=== PATIENT | female | born 1945 | race Caucasian/White ===

== ENCOUNTER → 2024-02-14 13:09 | Outpatient (REF) | payer MEDICARE, OTHER, SELFPAY | LOC: CLAB 13:09 | PROVIDERS: ATTENDING PHYSICIAN Nurse Practitioner | DX: N39.0 Urinary tract infection, site not specified (principal) | CPT/HCPCS: 87086 ==

== ENCOUNTER → 2024-03-12 16:09 | Outpatient (REF) | payer MEDICARE, OTHER, SELFPAY | LOC: RAD 16:09 | PROVIDERS: ATTENDING PHYSICIAN Nurse Practitioner; FAMILY PHYSICIAN Family Medicine | DX: N39.0 Urinary tract infection, site not specified (principal) | CPT/HCPCS: 76770; 76830; 76856 ==

== ENCOUNTER 2024-03-21 14:50 | Inpatient (IN) | payer MEDICARE, OTHER, SELFPAY ==
[2024-03-21 11:38] VITALS: BP 160/58
[2024-03-21 12:03] LABS: COVID-19 Antigen Negative (Negative)
--- NOTE | 2024-03-21 12:43 | ED.GENMED ---
History of Present Illness
General
Chief Complaint: Cold/Flu/URI Symptoms
Source: patient and spouse
Time Seen by Provider: 03/21/24 12:25
Travel History
Have you had any contact with someone who has COVID-19?: No
Do you have any symptoms of coronavirus? Fever > 100 degrees, chills, cough, shortness of breath, sore throat, loss of taste or smell, muscle aches, or headache?: Yes
Symptoms:: sore throat
History of Present Illness
History of Present Illness:
78-year-old female presents emergency department complaints of a mild sore throat that started on Monday and continues. She saw her primary yesterday and had a strep and flu test that was negative. She was started on doxycycline and has taken 2
doses. She notes ongoing generalized weakness for the last 2 to 3 days she said that last night she vomited x 1. However, she describes 'vomiting' as a fit of coughing followed by bringing up phlegm. She had another episode this morning. She
notes nausea and loss of appetite but denies abdominal pain, back pain, bleeding, fevers, urinary symptoms, diarrhea, abdominal pain. When asked about dyspnea she notes very slight dyspnea with exertion. When asked about chest pain she says she
had 'a little' in the upper chest this morning lasting about an hour and resolving completely.
Past History
Past History
ED Past Medical History: CVA (? in 07/2014), HTN, Hypercholesterolemia, NIDDM, Other (obesity) and Other (TOMEKA)
Social History
Tobacco: Non-smoker
Alcohol: None
Drug: None
Personal:
Living: with family
Employment: Retired
Family History
Family History: Other (reviewed and non-contributory)
Phy Exam
Physical Exam
Physical Exam:
GENERAL: Alert , in no apparent distress, obvious cough
EYE: pupils equal and reactive
NECK: Supple, no significant adenopathy.
ENT: o/p clr, mm dry, , no trismus/drool
CARDIAC: Regular rate and rhythm .
LUNGS: Clear breath sounds bilaterally, no acute respiratory distress, no wheezes/rales/rhonchi
ABDOMEN: Soft, without focal tenderness, no r/g, no cvat
NEUROLOGICAL: Alert and oriented, no focal neuro deficits
SKIN: Warm and dry, skin intact.
MUSCULOSKELETAL: No edema, well perfused.
PSYCH: Normal and appropriate interaction.
Course
Orders/Labs/Results
Orders:
Orders
03/21/24 Lunch
2000 calorie (17 carb) Diabetic
At Your Request: Full Participation
Does patient need a safe tray?: No
Fluid Restriction: 1200 mL/day (40 oz)
Regular
At Your Request: Full Participation
Fluid Restriction: 1200 mL/day (40 oz)
03/21/24 11:44
COVID-19 Antigen Urgent
Source: Nasal Swab
Influenza A+B Rapid Molecular Urgent
ARACELI Source: Nasal Swab
Specimen Description:
03/21/24 12:41
Cardiac Monitoring- Treatment ONCE
0.9% Sodium Chloride 500 ml [Nss] 500 ml IV BOLUS
03/21/24 12:42
Electrocardiogram (*1) Stat
Reason for Study: Other
Other Reason for Exam: pneumonia
EKG- Treatment ONCE
CR Chest - 2 Views Urgent
Comment:
Reason For Exam: cough
03/21/24 13:00
Comprehensive Metabolic Panel Urgent
Lactic Acid Q4H
Comment: CANCEL 2nd LACTIC ACID IF 1st LACTIC ACID IS LESS THAN 2
Magnesium Urgent
Comment: ADD ON
Blood Culture Q30M
ARACELI Source: Blood/Venous
Specimen Description:
Blood Culture Q30M
ARACELI Source: Blood/Venous
Specimen Description:
03/21/24 13:01
Complete Blood Count/No Diff Urgent
Cortisol, Random Urgent
Comment: ADD ON
TSH Reflex To Free T4 Urgent
Comment: ADD ON
Troponin I Urgent
03/21/24 14:11
Osmolality, Random Urine Urgent
Date Specimen was Collected: 03/21/24
Time Specimen was Collected: 14:04
Urinalysis Reflex To Culture Urgent
Date Specimen was Collected: 03/21/24
Time Specimen was Collected: 14:04
Urine Microscopic Reflex Cult Urgent
Urine Sodium Urgent
Date Specimen was Collected: 03/21/24
Time Specimen was Collected: 14:04
03/21/24 14:12
Admit/Transfer Patient As Directed
Co-Sign Provider:
Level of Care: Inpatient admission
Assign to:: Medical/Surgical
Physician / Group: Antony Grubbs
Diagnosis: Symptomatic hyponatremia
Reason for Hospitalization: Symptomatic hyponatremia
Expected length of stay greater than two midnights?: Yes
ELOS- Estimated Length of Stay in days: 2
I certify the patient meets the requirements for IP care: Yes
03/21/24 14:14
Code Status As Directed
Resuscitation Status: Full Code
03/21/24 15:00
3% Sodium Chloride 250 ml [Sodium Chloride 3%] 250 ml IV ONCE
03/21/24 16:35
Acetaminophen [Tylenol] 650 mg PO Q4HPRN PRN
Bisacodyl [Dulcolax] 10 mg RECTAL [id number] PRN
Dextrose 50%-Water [Dextrose 50% Syringe] 12.5 grams IV [id number] PRN
Docusate W/Senna [Senokot-S] 1 tablet PO BIDPRN PRN
Glucagon [GlucaGen] 1 mg IM PRN PRN
Insulin Aspart Corrective Low [Novolog Flexpen-Low Resistance] See Protocol SC AC
Ondansetron Injectable [Zofran] 4 mg IV Q6HPRN PRN
Polyethylene Glycol Powder [Miralax] 17 grams PO DAILYPRN PRN
03/21/24 16:35
Activity As Directed
Activity Level: Bedrest
Bedside Glucose Monitoring As Directed
Frequency: AC&HS
Additional Instructions:: Change to q6h if pt on TPN, tube feeding or not eating
Vital Signs As Directed
Frequency: Per unit guidelines
DX Deep Vein Thrombosis Video Routine
03/21/24 18:00
Enoxaparin Sodium [Lovenox] 40 mg SC QPM
METFORMIN HCl [Glucophage] 1,000 mg PO BID AT 0800,1700
03/21/24 20:00
Carvedilol [Coreg] 12.5 mg PO BID
Clorazepate Dipotassium [Tranxene] 3.75 mg PO BID
Doxycycline [Vibramycin] 100 mg PO BID
03/21/24 22:00
Gabapentin [Neurontin] 200 mg PO HS
03/22/24 07:27
Basic Metabolic Panel IN AM
Complete Blood Count/No Diff IN AM
03/22/24 08:00
Atorvastatin [Lipitor] 40 mg PO DAILY
Clopidogrel Bisulfate [Plavix] 75 mg PO DAILY
Losartan [Cozaar] 100 mg PO DAILY
Magnesium l-Lactate [Mag-Tab Sr] 84 mg PO DAILY
03/23/24 04:59
Basic Metabolic Panel IN AM
Complete Blood Count/No Diff IN AM
Abnormal Lab Results
03/21/24 03/21/24 03/21/24
13:00 13:01 14:11
WBC 12.6 H 10^3/uL
(4.8-10.8)
Hct 34.4 L %
(37.0-47.0)
MCV 78.4 L fL
(81.0-99.0)
Sodium 117 L* mmol/L
(135-145)
Chloride 83 L mmol/L
(98-107)
BUN 19 H mg/dl
(7-17)
Glucose 117 H mg/dl
(70-99)
Lactic Acid 3.4 H mmol/L
(0.7-2.0)
Magnesium 1.2 L mg/dl
(1.6-2.3)
Urine Ketones 1+ A
(Negative)
Leukocyte Esterase Rfl Trace A
(Negative)
Urine Bacteria (Reflex) Few A
(Negative)
Urine Sodium 137 H mmol/L
(30-90)
03/21/24 13:01
03/21/24 13:00
Vital Signs
Initial and Last Documented VS:
Initial Vital Signs
Temp Pulse Resp BP Pulse Ox
97.9 F 61 20 160/58 94
03/21/24 11:38 03/21/24 11:38 03/21/24 11:38 03/21/24 11:38 03/21/24 11:38
Last Documented Vital Signs
Temp Pulse Resp BP Pulse Ox
98.6 F 60 18 132/56 97
03/24/24 12:08 03/24/24 12:08 03/24/24 12:08 03/24/24 12:08 03/24/24 12:08
*Critical Care Note
Total Time (30-74mins, 75-104mins- exclusive of procedures): Not Applicable
Update Note
Update Note:
Patient presents to the Emergency Department with sore throat generalized weakness
Number and Complexity of Problems Addressed at the Encounter
� Chronic conditions affecting care:
� Acute Exacerbation and/or Progression of Chronic Illness:
� Differential Diagnosis includes: But not limited to COVID, influenza, viral illness, sepsis, electrolyte disturbance, etc.
Amount and/or Complexity of Data to be Reviewed and Analyzed
� I performed an independent evaluation of and my interpretation is:
EKG:
CT:
Xrays:
Laboratory Studies:
Other:
� Review of other/old records reveals:
� Clinical information was obtained by an independent historian: who is bedside
� Prescriptions/Medications Considered but not given:
� Further testing considered but not performed:
Risk of Complications and/or Morbidity or Mortality of Patient Management
� Social determinants of health affecting care:
� Discussion with other providers (PCP, Hospitalists, Consultants, etc):
� Escalation of care including admission/observation vs risk of discharge considered:
ED Attending Note
-
Portions of this chart may have been created with voice recognition software.� Occasional wrong word or��sound alike� substitutions may have occurred due to the inherent limitations of voice recognition software.
Discharge Plan
Departure
Patient Disposition: Admit
Date of Disposition: 03/21/24
Time of Disposition: 14:04
Admit to: Telemetry
Presentation/result/management discussed w/ accepting MD/DO: Hospitalist
Discharge Problem:
Hyponatremia
Interventions
Interventions:
*Risk Screen - Suicide Last Done: 03/21/24 12:15
*General Assessment Last Done: 03/21/24 13:30
*Neglect/Abuse Screening Last Done: 03/21/24 12:15
ED- Fall Risk Assessment Last Done: 03/21/24 16:42
*ED COVID-19 Vaccine History Last Done: 03/21/24 11:38
*Nursing Disposition Last Done: 03/21/24 16:42
ED- Pulmonary Assessment Last Done: 03/21/24 13:31
Discharge Date and Time
Discharge Date/Time: 03/21/24 16:42
[2024-03-21] MEDS: NSS 500 IV (13:01)
[2024-03-21 13:11] LABS: Hematocrit 34.4 % (37.0-47.0); Hemoglobin 12.3 g/dL (12.0-16.0); Mean Corp Hgb Conc. 35.8 g/dL (33.0-37.0); Mean Corpuscular Volume 78.4 fL (81.0-99.0); Mean Platelet Volume 9.4 fL (7.4-10.4); Platelet Count 227 10^3/uL (130-400); Red Blood Cell Count 4.39 10^6/uL (4.20-5.40); Red Cell Dist. Width 13.4 % (11.5-14.5); White Blood Cell Count 12.6 10^3/uL (4.8-10.8)
[2024-03-21 13:24] LABS: Lactic Acid 3.4 mmol/L (0.7-2.0)
[2024-03-21 13:34] LABS: Troponin I < 0.012 ng/ml
[2024-03-21 13:41] LABS: ALT (SGPT) 18 U/L (0-35); AST (SGOT) 23 U/L (14-36); Albumin 4.6 g/dl (3.5-5.0); Alkaline Phosphatase 89 U/L (38-126); Blood Urea Nitrogen 19 mg/dl (7-17); Calcium 9.4 mg/dl (8.4-10.2); Carbon Dioxide 24 mmol/L (22-30); Chloride 83 mmol/L (98-107); Glucose 117 mg/dl (70-99); Potassium 3.5 mmol/L (3.5-5.1); Sodium 117 mmol/L (135-145); Total Bilirubin 1.3 mg/dl (0.2-1.3); Total Protein 7.1 g/dl (6.3-8.2); eGFR > 60.00
--- NOTE | 2024-03-21 14:18 | HPS.HSE ---
Family Physician
-
Family Physician: Migdalia Bush
Chief Complaint
-
Generalized weakness and fatigue
History of Present Illness
Patient is 78-year-old female with past medical history of essential hypertension, hyperlipidemia, type 2 diabetes mellitus, CAD, history of breast cancer, COVID-19 infection, history of hyponatremia came to ER with new onset of generalized weakness
and fatigue for the last 5 to 6 days. Patient had also associated new onset of nausea and 1 episode of nonbilious vomiting last night. Patient denies of having any overt diarrhea. Appetite is poor and patient has not been eating well for the last
2 days. Denies of having any other problems chest pain/shortness of breath/palpitation/dizziness/syncope.
Patient in 22 had episode of hyponatremia and was required admission and 2 dose of Samsca. Post discharge patient was maintained on oral Lasix. Patient have seen nephrology in office. Patient unfortunately not following fluid restriction as per
patient she was not informed about this.
Medical History
Past Medical History
Past Medical History: Reports Other
Additional Past Medical History:
essential hypertension, hyperlipidemia, type 2 diabetes mellitus, CAD, history of breast cancer, COVID-19 infection, history of hyponatremia
Past Surgical History: Reports Other
Social History
Tobacco: Non-smoker
Alcohol: Occasional
Drug: None
Personal:
Living: With Family
Family History
Family History: Not pertinent
Allergies / Home Medications
Allergies reflects when Allergies were last updated in [facility].
Home Medications with original date entered in [facility]
Allergy/Medication List:
Allergies
Allergy/AdvReac Type Severity Reaction Status Date / Time
azithromycin Allergy Unknown Verified 03/21/24 11:43
cephalexin Allergy Unknown Verified 03/21/24 11:43
clarithromycin Allergy Unknown Verified 03/21/24 11:43
codeine Allergy Unknown Verified 03/21/24 11:43
Estrogens Allergy Unknown Verified 03/21/24 11:43
guaifenesin Allergy Unknown Verified 03/21/24 11:43
levofloxacin [From Levaquin] Allergy dizzness Verified 03/21/24 11:43
morphine Allergy Unknown Verified 03/21/24 11:43
ofloxacin Allergy Unknown Verified 03/21/24 11:43
Penicillins Allergy Unknown Verified 03/21/24 11:43
phenylephrine HCl Allergy Unknown Verified 03/21/24 11:43
[From Entex LA]
phenylpropanolamine Allergy Unknown Verified 03/21/24 11:43
phenylpropanolamine HCl Allergy Unknown Verified 03/21/24 11:43
[From Entex LA]
prochlorperazine Allergy Unknown Verified 03/21/24 11:43
promethazine Allergy Unknown Verified 03/21/24 11:43
sulfadiazine Allergy Unknown Verified 03/21/24 11:43
valacyclovir Allergy Unknown Verified 03/21/24 11:43
Home Medications
clopidogrel 75 mg tablet 75 mg PO DAILY Blood clot prevention/tx 05/08/16
clorazepate dipotassium 3.75 mg tablet 3.75 mg PO BID Neurological Condition 05/08/16
atorvastatin 40 mg tablet 40 mg PO DAILY High cholesterol 10/09/22
betamethasone dipropionate 0.05 % topical cream 1 applic topical DAILY Skin issues 10/09/22
cyanocobalamin (vitamin B-12) 1,000 mcg capsule 1,000 mcg PO DAILY Supplement 10/09/22
gabapentin 100 mg tablet 200 mg PO HS Neurological Condition 10/09/22
sitagliptin phosphate 50 mg tablet (Januvia) 50 mg PO BID Diabetes 10/09/22
carvedilol 6.25 mg tablet 6.25 mg PO BID Blood pressure #60 tabs 10/13/22
furosemide 20 mg tablet 20 mg PO DAILY fluid retention #30 tabs 10/13/22
metformin 1,000 mg tablet 1,000 mg PO BID Diabetes #0 tabs 10/13/22
PreserVision AREDS 1 tab PO BID 11/26/22
Slow Release Magnesium 1 tab PO BID 11/26/22
cranberry 500 mg capsule 500 mg PO DAILY 11/26/22
cyanocobalamin (vitamin B-12) 1,000 mcg tablet (Vitamin B-12) 1,000 mcg PO DAILY 11/26/22
losartan 25 mg tablet 25 mg PO DAILY 11/26/22
ondansetron 4 mg disintegrating tablet 4 mg PO Q6H PRN nausea and vomiting #20 tabs 11/26/22
ondansetron 4 mg disintegrating tablet 4 mg PO TID PRN nausea and vomiting #10 tabs 07/18/23
Review of Systems
-
A 12 point ROS was completed and negative except as noted: Yes
Physical Exam
Vital Signs
Vital Signs
Temp Pulse Resp BP Pulse Ox
97.9 F 62 12 160/58 96
03/21/24 11:38 03/21/24 13:30 03/21/24 13:30 03/21/24 11:38 03/21/24 13:30
Physical Exam
General: No Apparent Distress
HEENT: NormoCephalic, Moist mucous membranes and Atraumatic
Respiratory: Clear
Cardiac: S1/S2 and Regular Rhythm; No Murmur or Rub
GI: Soft, Non Tender, Non Distended and Normal Bowel Sounds; No Organomegaly
Rectal: Deferred by Provider
Musculoskeletal: No Clubbing, No Cyanosis and No Edema
Skin: No Rash
Neuro: Awake, Alert and Nonfocal/grossly intact
Laboratory Results
-
03/21/24 13:01
03/21/24 13:00
Laboratory Results
Lactic Acid 3.4 mmol/L (0.7-2.0) H 03/21/24 13:00
Total Bilirubin 1.3 mg/dl (0.2-1.3) 03/21/24 13:00
AST 23 U/L (14-36) 03/21/24 13:00
ALT 18 U/L (0-35) 03/21/24 13:00
Alkaline Phosphatase 89 U/L (38-126) 03/21/24 13:00
Troponin I < 0.012 ng/ml 03/21/24 13:01
Data Reviewed
-
Diagnostic Radiology: Image Personally Visualized and interpreted and Discussed with Family
Lab Data: Labs Reviewed by me, Discussed with Patient and Discussed with Family
Impression/Plan
-
1. Acute hyponatremia
-Previous history of hyponatremia with another sodium of 126
-Patient been having generalized weakness/fatigue for last few days
-Sodium 117 today in ER
-Urine sodium/electrolyte check pending
-Recheck TSH/free T4/random cortisol level
-No overt malignancy on lung parenchyma, right humeral head area bone changes? await official read
-Patient getting 3% hypertonic saline
-Follow-up BMP 1800
-Nephrology help appreciated
2. HTN urgency
Essential HTN
-Resume home medication of losartan/coreg
-med reconcilation pending
3. NIDDM
- maintain on ISS
- Hold PO meds
4. Nausea/vomiting
-hyponatremia related likely
-diet as tolerated, prn zofran
CAD
HLD
h/o COVID infection
DVTPPX - lovenox
Full code
[2024-03-21] MEDS: SODIUM CHLORIDE 3% 250 IV (14:19)
[2024-03-21 14:22] VITALS: BP 165/43
[2024-03-21 14:30] LABS: Urine Albumin Negative (Neg - Trace); Urine Bilirubin Negative (Negative); Urine Character Clear (Clear); Urine Color Yellow; Urine Glucose Negative (Negative); Urine Ketone 1+ (Negative); Urine Leukocyte Trace (Negative); Urine Nitrite Negative (Negative); Urine Occult Blood Negative (Negative); Urine Urobilinogen Negative (Neg - 1+)
--- NOTE | 2024-03-21 14:31 | W.CON.NEPH ---
Consultation
-
Date/Time Consultation Requested: 03/21/2024 2:15 PM
Date/Time Consultation Performed: 03/21/2024 2:15 PM
Requesting Provider: Romie
Performing Provider: Dr. Jackson
Reason for Consultation: Hyponatremia
Medical History
-
Chief Complaint: Hyponatremia
History of Present Illness:
78-year-old female with past medical history of hypertension maintained on lisinopril and carvedilol, diabetes with retinopathy and neuropathy maintained on Jardiance metformin, as well as previous history of stroke maintained on statin Plavix,
hyponatremia hx maintain on lasix but no fluid restriction presents to the hospital emergency room due to generalized weakness sore throat dry cough and fatigue over the past week. The patient had also had some associated new onset of nausea with 1
episode of vomiting last p.m. but denied any associated abdominal pain fevers or diarrhea. Patient states that her appetite has been poor over the past several days and she has been only taking in fluids. On presentation to the hospital the
patient had a sodium of 117 and nephrology was urgently consulted. Of note nephrology had seen her in September 2022 with similar presentation.
Past Medical History
essential hypertension, hyperlipidemia, type 2 diabetes mellitus, CAD, history of breast cancer, COVID-19 infection, history of hyponatremia
Social History
Tobacco: Non-Smoker
Alcohol: Occasional
Drug: None
Personal:
Family History
No chronic kidney disease
Allergies / Home Medications
Allergy/AdvReac Type Severity Reaction Status Date / Time
azithromycin Allergy Unknown Verified 03/21/24 11:43
cephalexin Allergy Unknown Verified 03/21/24 11:43
clarithromycin Allergy Unknown Verified 03/21/24 11:43
codeine Allergy Unknown Verified 03/21/24 11:43
Estrogens Allergy Unknown Verified 03/21/24 11:43
guaifenesin Allergy Unknown Verified 03/21/24 11:43
levofloxacin [From Levaquin] Allergy dizzness Verified 03/21/24 11:43
morphine Allergy Unknown Verified 03/21/24 11:43
ofloxacin Allergy Unknown Verified 03/21/24 11:43
Penicillins Allergy Unknown Verified 03/21/24 11:43
phenylephrine HCl Allergy Unknown Verified 03/21/24 11:43
[From Entex LA]
phenylpropanolamine Allergy Unknown Verified 03/21/24 11:43
phenylpropanolamine HCl Allergy Unknown Verified 03/21/24 11:43
[From Entex LA]
prochlorperazine Allergy Unknown Verified 03/21/24 11:43
promethazine Allergy Unknown Verified 03/21/24 11:43
sulfadiazine Allergy Unknown Verified 03/21/24 11:43
valacyclovir Allergy Unknown Verified 03/21/24 11:43
�Medication �Instructions �Recorded �Confirmed �Type
clopidogrel 75 mg tablet 75 mg PO DAILY Blood clot 05/08/16 11/26/22 History
prevention/tx
clorazepate dipotassium 3.75 mg 3.75 mg PO BID Neurological 05/08/16 11/26/22 History
tablet Condition
atorvastatin 40 mg tablet 40 mg PO DAILY High cholesterol 10/09/22 11/26/22 History
betamethasone dipropionate 0.05 % 1 applic topical DAILY Skin issues 10/09/22 11/26/22 History
topical cream
cyanocobalamin (vitamin B-12) 1,000 mcg PO DAILY Supplement 10/09/22 11/26/22 History
1,000 mcg capsule
carvedilol 6.25 mg tablet 6.25 mg PO BID Blood pressure #60 10/13/22 11/26/22 Rx
tabs
metformin 1,000 mg tablet 1,000 mg PO BID Diabetes #0 tabs 10/13/22 11/26/22 Rx
Slow Release Magnesium 1 tab PO BID 11/26/22 11/26/22 History
cranberry 500 mg capsule 500 mg PO DAILY 11/26/22 11/26/22 History
cyanocobalamin (vitamin B-12) 1,000 mcg PO DAILY 11/26/22 11/26/22 History
1,000 mcg tablet (Vitamin B-12)
vitamins A,C,K-gxii-boerwv 2,148 1 tab PO DAILY 11/26/22 03/21/24 History
mcg-113 mg-45 mg-17.4 mg tablet
(PreserVision AREDS)
doxycycline monohydrate 100 mg 100 mg PO BID 03/21/24 03/21/24 History
capsule
Review of Systems
-
History Source: Patient
All other systems: Negative unless noted
Constitutional: Fatigue and Other (Malaise, decreased appetite)
EENT: Sore Throat and Runny Nose
Respiratory: Other (Dry cough no shortness of breath)
Cardiac: No Symptoms
Abdomen/GI: Nausea, Vomiting and Anorexia
: No Symptoms
Musculoskeletal: No Symptoms
Skin: No Symptoms
Neurological: Other (Chronic lower extremity neuropathy)
Endocrine: No Symptoms
Hematologic/Lymphatic: No Symptoms
Physical Exam
Vital Signs
Vital Signs
Temp Pulse Resp BP Pulse Ox
97.9 F 62 12 160/58 96
03/21/24 11:38 03/21/24 13:30 03/21/24 13:30 03/21/24 11:38 03/21/24 13:30
Lab Results
03/21/24 13:01
03/21/24 13:00
WBC 12.6 10^3/uL (4.8-10.8) H 03/21/24 13:01
RBC 4.39 10^6/uL (4.20-5.40) 03/21/24 13:01
Hgb 12.3 g/dL (12.0-16.0) 03/21/24 13:01
Hct 34.4 % (37.0-47.0) L 03/21/24 13:01
Plt Count 227 10^3/uL (130-400) 03/21/24 13:01
Sodium 117 mmol/L (135-145) L* 03/21/24 13:00
Potassium 3.5 mmol/L (3.5-5.1) 03/21/24 13:00
Chloride 83 mmol/L (98-107) L 03/21/24 13:00
Carbon Dioxide 24 mmol/L (22-30) 03/21/24 13:00
BUN 19 mg/dl (7-17) H 03/21/24 13:00
Creatinine 0.6 mg/dL (0.6-1.0) 03/21/24 13:00
eGFR > 60.00 03/21/24 13:00
Glucose 117 mg/dl (70-99) H 03/21/24 13:00
Calcium 9.4 mg/dl (8.4-10.2) 03/21/24 13:00
Albumin 4.6 g/dl (3.5-5.0) 03/21/24 13:00
Physical Exam
General: AOx3, Nontoxic , NAD
HEENT: PERRL, EOMI, Anicteric, Conjunctivae Clear, Ear/Nose Intact, Hearing Normal, Oropharynx Clear/Moist, Dentition Intact, Facial Symmetry, Neck Supple, Neck: Trachea Midline, No JVD and No Thyromegaly, no Bruits
Respiratory: Clear to auscultation bilaterally with normal lung excursion
Cardiac: S1/S2 and Regular Rate/Rhythm
Breast: Deferred by me
Abdomen: Soft, Nontender, Nondistended, Normal Bowel Sounds and No Hepatosplenomegaly
Rectal: Deferred by Provider
Genito-urinary: No Costovertebral Tenderness
Extremities: No Clubbing, No Cyanosis and No Edema
Skin: No Rash or open lesions
Neuro: Nonfocal/Grossly Intact, CN II-XII (Intact) and Strength (Musculoskeletal exam 5 out of 5 both upper and lower extremities)
Hematologic/Lymphatic: No Cervical Lymphadenopathy, No Submandibular Lymphadenopathy and No Supraclavicular Lymphadenopathy
Psych: Mood/afflect pleasant, Insight/judgement good and Appropriate
Vascular: plus 2 pedal and radial pulses
Data Reviewed
-
Radiology: Image Personally Visualized and interpreted (Chest x-ray reviewed by myself: No CHF or pneumonia hyperinflated lung elise noted)
Labs: Labs Reviewed by me (BMP CBC urine osmolality urine sodium)
Old Records: Reviewed (Sodium 133 July 13, 2023, nephrology consult September 2022 reviewed)
Assessment/Plan
-
Impression:
Symptomatic euvolemic hyponatremia (117)
History of hyponatremia
Hypertension
Diabetes
History of breast cancer
Dyslipidemia
Plan:
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
-Likely exacerbated by presence of URI and unregulated fluid intake
-Fluid restriction 1200 cc daily
-3% saline to be administered at 20 cc/h for total of 250 cc
-Recheck electrolytes after 3% infusion complete
-Follow-up urine osmolality and urine sodium
-Will likely leave on Lasix and fluid restriction
-TSH and cortisol to be obtained
HTN:
Maintain carvedilol and losartan
[2024-03-21 15:00] VITALS: BP 167/70
[2024-03-21 15:12] LABS: Osmolality Urine 507 mOsm/kg (300-900); Urine Bacteria Few (Negative); Urine Red Blood Cell 0-2 /HPF (0-2); Urine White Cell 0-2 /HPF (0-5)
[2024-03-21 15:17] LABS: Urine Sodium 137 mmol/L (30-90)
[2024-03-21 16:49] VITALS: BP 189/78
--- NOTE | 2024-03-21 17:00 | PTCARENOTE ---
Spoke with Nephro, BMP retimed for after 3% sodium bag is finished.
[2024-03-21 17:02] LABS: Glucose - Point of Care 148 mg/dl (70-99)
[2024-03-21] MEDS: TYLENOL 650 MG PO (17:04)
[2024-03-21 17:12] LABS: Magnesium 1.2 mg/dl (1.6-2.3)
[2024-03-21] MEDS: LOVENOX 40 MG SC (17:48)
[2024-03-21] MEDS: APRESOLINE 10 MG IV (17:48)
[2024-03-21] MEDS: GLUCOPHAGE 1000 MG PO (17:48)
[2024-03-21] MEDS: NOVOLOG FLEXPEN-LOW RESISTANCE SC (17:48)
[2024-03-21 17:52] LABS: Cortisol, Random 18.6 ug/dl
[2024-03-21 18:20] LABS: Lactic Acid 2.9 mmol/L (0.7-2.0)
[2024-03-21 18:36] VITALS: BP 148/64
[2024-03-21] MEDS: MAGNESIUM SULFATE 100 IV (19:26)
[2024-03-21] MEDS: FIORICET 1 TAB PO (19:43)
--- NOTE | 2024-03-21 20:31 | PTCARENOTE ---
Received pt from ER.Pt awake, alert and oriented x3. Pt reports weakness and overall feeling of malaise. Pt currently has 3% sodium infusing per orders. Pt bp elevated upon arrival to floor and magnesium result 1.3. MD made aware orders for
hydralazine and mag rider. BP reassessed and stable, magnesium infusing per order. Pt c/o headache given tylenol with no relief. MD order for Fiorecet , given and pt starting to feel relief. Pt oriented to room, call costa within reach, instructed to
ring for assistance given weakness, verbalized understanding, plan of care ongoing.
[2024-03-21] MEDS: TRANXENE 3.75 MG PO (20:41)
[2024-03-21] MEDS: VIBRAMYCIN 100 MG PO (20:44)
[2024-03-21] MEDS: COREG PO (20:48)
[2024-03-21] MEDS: NEURONTIN 200 MG PO (20:49)
[2024-03-21 21:22] LABS: Glucose - Point of Care 132 mg/dl (70-99)
[2024-03-21 22:25] LABS: Lactic Acid 2.4 mmol/L (0.7-2.0)
[2024-03-21 22:31] LABS: Blood Urea Nitrogen 16 mg/dl (7-17); Calcium 8.6 mg/dl (8.4-10.2); Carbon Dioxide 23 mmol/L (22-30); Chloride 90 mmol/L (98-107); Estimated Creatinine Clearance 63 ml/min; Glucose 107 mg/dl (70-99); Potassium 3.1 mmol/L (3.5-5.1); Sodium 120 mmol/L (135-145); eGFR > 60.00
--- NOTE | 2024-03-21 22:35 | PTCARENOTE ---
BMP drawn by phlebotomy early with ~ 1 hour and 50 minutes left of 3% sodium chloride. Sodium 120 from 117. 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 Plan of care ongoing.
[2024-03-21] MEDS: KCL 40 MEQ PO (22:48)
[2024-03-21 23:20] LABS: Magnesium 2.7 mg/dl (1.6-2.3)
[2024-03-21 23:25] VITALS: BP 142/57
[2024-03-22 07:10] LABS: Glucose - Point of Care 128 mg/dl (70-99)
[2024-03-22 07:37] LABS: Hematocrit 31.6 % (37.0-47.0); Hemoglobin 11.4 g/dL (12.0-16.0); Mean Corp Hgb Conc. 36.1 g/dL (33.0-37.0); Mean Corpuscular Hgb 27.7 pg (27.0-31.0); Mean Corpuscular Volume 76.9 fL (81.0-99.0); Mean Platelet Volume 9.2 fL (7.4-10.4); Platelet Count 209 10^3/uL (130-400); Red Blood Cell Count 4.11 10^6/uL (4.20-5.40); Red Cell Dist. Width 13.7 % (11.5-14.5); White Blood Cell Count 6.8 10^3/uL (4.8-10.8)
[2024-03-22 07:43] VITALS: BP 177/76
[2024-03-22 07:49] LABS: Lactic Acid 0.9 mmol/L (0.7-2.0)
[2024-03-22 08:08] LABS: Blood Urea Nitrogen 13 mg/dl (7-17); Calcium 8.7 mg/dl (8.4-10.2); Carbon Dioxide 23 mmol/L (22-30); Chloride 95 mmol/L (98-107); Estimated Creatinine Clearance 63 ml/min; Glucose 124 mg/dl (70-99); Magnesium 2.1 mg/dl (1.6-2.3); Potassium 3.8 mmol/L (3.5-5.1); Sodium 124 mmol/L (135-145); eGFR > 60.00
[2024-03-22 08:10] VITALS: BP 163/70
[2024-03-22] MEDS: NOVOLOG FLEXPEN-LOW RESISTANCE SC ×3 (09:09→16:51)
[2024-03-22] MEDS: COZAAR 100 MG PO (09:10)
[2024-03-22] MEDS: PLAVIX 75 MG PO (09:10)
[2024-03-22] MEDS: LIPITOR 40 MG PO (09:10)
[2024-03-22] MEDS: VIBRAMYCIN 100 MG PO ×2 (09:10→20:54)
[2024-03-22] MEDS: MAG-TAB SR 84 MG PO (09:10)
[2024-03-22] MEDS: COREG PO (09:11)
[2024-03-22] MEDS: GLUCOPHAGE 1000 MG PO ×2 (09:11→18:00)
[2024-03-22] MEDS: TRANXENE 3.75 MG PO ×2 (09:12→20:55)
[2024-03-22] MEDS: FLUSH (NSS) 1 FLUSH IV (09:13)
--- NOTE | 2024-03-22 10:36 | W.PN.HOSP.TC ---
Today's Communication/Plan
-
f/u Na level
await further nephro input
Assessment / Plan
Assessment / Plan
1. Acute hyponatremia - presumed hypovolemic
-Previous history of hyponatremia with another sodium of 126
-Patient been having generalized weakness/fatigue for last few days
-Sodium 117 in ER
-Urine sodium 137 Uosm 507
-TSH/random cortisol WNL
-No overt malignancy on lung parenchyma, right humeral head chronic changes
-s/p 3% hypertonic saline
-repeat Na of 124 today, await further evaluation by nephro today
2. HTN urgency
Essential HTN
-Resume home medication of losartan/coreg
-med reconciliation pending
3. NIDDM
- maintain on ISS
- continue metformin, hold other meds.
4. Nausea/vomiting - resolved
-hyponatremia related likely
-diet as tolerated, prn zofran
CAD
HLD
h/o COVID infection
DVTPPX - lovenox
Full code
Anticipated Discharge: Within 24 hours
Subjective/Interval History
-
Date of Service: March 22, 2024
having some headache
denies of having problems
Objective Data
-
Labs:
Laboratory Results
03/22/24
07:27
WBC 6.8
Hgb 11.4 L
Hct 31.6 L
Plt Count 209
Sodium 124 L
Potassium 3.8
Chloride 95 L
Carbon Dioxide 23
BUN 13
Creatinine 0.5 L
Glucose 124 H
Calcium 8.7
Vital Signs:
Vital Signs
Temp Pulse Resp BP Pulse Ox
97.6 F 62 18 163/70 100
03/22/24 08:10 03/22/24 09:11 03/22/24 08:10 03/22/24 09:11 03/22/24 09:05
I&O
03/21/24 03/22/24 03/23/24
06:59 06:59 06:59
Intake Total 480 / 480
Balance 480 / 480
Review of Systems
-
Respiratory: Reports No Symptoms
Cardiac: Reports No Symptoms
Abdomen/GI: Reports No Symptoms
Physical Exam
-
General: Well Developed, Well Nourished and No Apparent Distress
Respiratory: Clear to Auscultation; Negative Wheezes or Rales
Cardiac: Regular Rhythm and S1/S2; Negative Murmur
GI: Soft, Nontender, Nondistended and Normal Bowel Sounds
Musculoskeletal: No Clubbing, No Cyanosis and No Edema
[2024-03-22 11:45] LABS: Glucose - Point of Care 139 mg/dl (70-99)
[2024-03-22] MEDS: TYLENOL 650 MG PO (14:22)
[2024-03-22 14:36] LABS: Sodium 126 mmol/L (135-145)
--- NOTE | 2024-03-22 14:58 | CM ---
Mrs. Corrales lives in the community with her in a 3 story home with 2 entry steps. Powder room is on the ground floor, full bathroom is on the 2nd floor. 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
PCP is Dr. Migdalia Bush
Pharmacy is [facility] in [place]
Pharmacy fax: [phone]
Discharge plan to home with and no needs.
[2024-03-22 15:27] VITALS: BP 150/88
--- NOTE | 2024-03-22 15:28 | W.PN.NEPH.PH ---
Addendum entered and electronically signed by Jaleesa Lau MD 03/22/24 15:36:
d/w pt and pfamily on phone in detail
HCTZ should add to allergy list
Original Note:
Today's Communication / Plan
-
lasix 20mg
Amlodipine 5mg daily
Assessment/Plan
-
Impression:
Symptomatic euvolemic hyponatremia (117)
History of hyponatremia
Hypertension
Diabetes
History of breast cancer
Dyslipidemia
Plan:
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
-Likely exacerbated by presence of URI and unregulated fluid intake, also from recent use of HCTZ, U osmo 507, U na 137
-Fluid restriction 1200 cc daily
sodium corrected appropriately upto 126
-Will likely leave on Lasix and fluid restriction
-TSH and cortisol are normal
BP are high, will add low dose Amlodipine
labs in am
-
-
Date of Service: March 22, 2024
CC / HPI / ROS
-
Chief Complaint:
Hyponatremia
History of Present Illness:
sodium better 126 s/p 3% saline
BP are high
no fever
Review of Systems:
no cp or sob
still with frontal MEIER thinks from sinus
mild dizzy
Labs
-
Labs:
WBC 6.8 10^3/uL (4.8-10.8) 03/22/24 07:27
RBC 4.11 10^6/uL (4.20-5.40) L 03/22/24 07:27
Hgb 11.4 g/dL (12.0-16.0) L 03/22/24 07:27
Hct 31.6 % (37.0-47.0) L 03/22/24 07:27
Plt Count 209 10^3/uL (130-400) 03/22/24 07:27
Sodium 126 mmol/L (135-145) L 03/22/24 14:10
Potassium 3.8 mmol/L (3.5-5.1) 03/22/24 07:27
Chloride 95 mmol/L (98-107) L 03/22/24 07:27
Carbon Dioxide 23 mmol/L (22-30) 03/22/24 07:27
BUN 13 mg/dl (7-17) 03/22/24 07:27
Creatinine 0.5 mg/dL (0.6-1.0) L 03/22/24 07:27
eGFR > 60.00 03/22/24 07:27
Glucose 124 mg/dl (70-99) H 03/22/24 07:27
Calcium 8.7 mg/dl (8.4-10.2) 03/22/24 07:27
Albumin 4.6 g/dl (3.5-5.0) 03/21/24 13:00
Physical Exam
-
Vital Signs:
Vital Signs
Temp Pulse Resp BP Pulse Ox
98.7 F 72 18 150/88 98
03/22/24 15:27 03/22/24 15:27 03/22/24 15:27 03/22/24 15:27 03/22/24 15:27
Cardiovascular:: Regular rate and rhythm
Respiratory:: Bilateral: CTA
Lung Excursion:: Normal
Abdomen:: Nontender and Soft
Extremity Edema:: None: Bilateral:
Butts Catheter: No
[2024-03-22 16:33] LABS: Glucose - Point of Care 145 mg/dl (70-99)
--- NOTE | 2024-03-22 16:33 | PTCARENOTE ---
Pt AAO x3, HICKEY well, OOB to BR/BSC/chair with assist x1; sl unsteady w/OOB activity; pt occ c/o 'feel weak'. Fall prec maintained. VSS. On room air- pulse ox 98%, no c/o SOB. Abd large, soft, bri PO well. Voidng clear yellow urine on BSC with
out difficulty. Pt occ c/o 'sinus headache'- good effect from PO Tylenol prn. Resting comfortably at present, will continue to monitor.
[2024-03-22] MEDS: LASIX 20 MG PO (16:37)
[2024-03-22] MEDS: LOVENOX 40 MG SC (18:00)
[2024-03-22] MEDS: COREG 12.5 MG PO (20:55)
[2024-03-22 21:19] LABS: Glucose - Point of Care 146 mg/dl (70-99)
[2024-03-22] MEDS: NEURONTIN 200 MG PO (23:13)
[2024-03-22] MEDS: NORVASC 5 MG PO (23:15)
[2024-03-22 23:23] VITALS: BP 145/74
[2024-03-23 04:22] VITALS: BMI 26.2
[2024-03-23 05:50] LABS: Hematocrit 31.7 % (37.0-47.0); Hemoglobin 11.3 g/dL (12.0-16.0); Mean Corp Hgb Conc. 35.6 g/dL (33.0-37.0); Mean Corpuscular Hgb 27.9 pg (27.0-31.0); Mean Corpuscular Volume 78.3 fL (81.0-99.0); Mean Platelet Volume 9.5 fL (7.4-10.4); Platelet Count 222 10^3/uL (130-400); Red Blood Cell Count 4.05 10^6/uL (4.20-5.40); White Blood Cell Count 7.8 10^3/uL (4.8-10.8)
[2024-03-23 06:10] LABS: Blood Urea Nitrogen 23 mg/dl (7-17); Calcium 8.7 mg/dl (8.4-10.2); Carbon Dioxide 23 mmol/L (22-30); Chloride 96 mmol/L (98-107); Estimated Creatinine Clearance 52 ml/min; Glucose 111 mg/dl (70-99); Potassium 3.9 mmol/L (3.5-5.1); Sodium 128 mmol/L (135-145); eGFR > 60.00
[2024-03-23 07:33] LABS: Glucose - Point of Care 123 mg/dl (70-99)
[2024-03-23 07:35] VITALS: BP 140/55
[2024-03-23] MEDS: NOVOLOG FLEXPEN-LOW RESISTANCE SC ×2 (08:36→12:42)
[2024-03-23] MEDS: MAG-TAB SR 84 MG PO (08:52)
[2024-03-23] MEDS: LIPITOR 40 MG PO (08:52)
[2024-03-23] MEDS: COZAAR 100 MG PO (08:52)
[2024-03-23] MEDS: COREG 12.5 MG PO ×2 (08:52→20:25)
[2024-03-23] MEDS: GLUCOPHAGE 1000 MG PO ×2 (08:52→17:18)
[2024-03-23] MEDS: TRANXENE 3.75 MG PO ×2 (08:53→20:25)
[2024-03-23] MEDS: VIBRAMYCIN 100 MG PO ×2 (08:53→20:25)
[2024-03-23] MEDS: LASIX 20 MG PO (08:53)
[2024-03-23] MEDS: PLAVIX 75 MG PO (08:53)
[2024-03-23 11:44] LABS: Glucose - Point of Care 134 mg/dl (70-99)
--- NOTE | 2024-03-23 11:45 | W.PN.HOSP.TC ---
Today's Communication/Plan
-
recheck bmp in afternoon
possible discharge in 24hrs
Assessment / Plan
Assessment / Plan
1. Acute hyponatremia - presumed hypovolemic
-Previous history of hyponatremia with another sodium of 126
-Patient been having generalized weakness/fatigue for last few days
-Sodium 117 in ER
-Urine sodium 137 Uosm 507
-TSH/random cortisol WNL
-No overt malignancy on lung parenchyma, right humeral head chronic changes
-s/p 3% hypertonic saline
-Sodium slowly up trending and 128 today.
-Nephro discussed hyperlipidemia was started on hydrochlorothiazide 1 week back not on med list. Patient to be not take any further HCTZ
2. HTN urgency - resolved
Essential HTN
-Resume home medication of losartan/coreg
-norvasc started - BP improved
3. NIDDM
- maintain on ISS
- continue metformin, hold other meds.
4. Nausea/vomiting - resolved
-hyponatremia related likely
-diet as tolerated, prn zofran
5. Mild bronchitis
-patient was started on doxy before hospitalization,
-Likely viral. Continue symptomatic care
-Mild cough with it. No dyspnea/hypoxia
CAD
HLD
h/o COVID infection
DVTPPX - lovenox
Full code
Discussed with Nephrology
Anticipated Discharge: Within 24 hours
Subjective/Interval History
-
Date of Service: March 23, 2024
Resting comfortably in bed
Denies having headache
Still have some cough
No other issues
Objective Data
-
Labs:
Laboratory Results
03/23/24 03/23/24
04:59 15:00
WBC 7.8
Hgb 11.3 L
Hct 31.7 L
Plt Count 222
Sodium 128 L Pending
Potassium 3.9 Pending
Chloride 96 L Pending
Carbon Dioxide 23 Pending
BUN 23 H Pending
Creatinine 0.7 Pending
Glucose 111 H Pending
Calcium 8.7 Pending
Vital Signs:
Vital Signs
Temp Pulse Resp BP Pulse Ox
97.8 F 73 18 140/58 99
03/23/24 07:35 03/23/24 08:52 03/23/24 07:35 03/23/24 08:52 03/23/24 07:35
I&O
03/22/24 03/23/24 03/24/24
06:59 06:59 06:59
Intake Total 480 / 480 1020 / 1020
Output Total 800 / 800
Balance 480 / 480 220 / 220
Review of Systems
-
Respiratory: Reports Cough; Denies Trouble Breathing
Cardiac: Reports No Symptoms
Abdomen/GI: Reports No Symptoms
Physical Exam
-
General: No Apparent Distress
HEENT: Negative Oxygen
Neuro: Awake, Alert and Oriented
Psych: Calm
--- NOTE | 2024-03-23 14:11 | W.PN.NEPH.PH ---
Today's Communication / Plan
-
samsca if repeat sodium still low
Assessment/Plan
-
Impression:
Symptomatic euvolemic hyponatremia (117)
History of hyponatremia
Hypertension
Diabetes
History of breast cancer
Dyslipidemia
Plan:
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
-Likely exacerbated by presence of URI and unregulated fluid intake+ recent use of HCTZ, U osmo 507, U na 137
-Fluid restriction 1200 cc daily
sodium corrected appropriately upto 128, samsca low dose today
cont Lasix and fluid restriction
-TSH and cortisol are normal
BP are improving with addition of Amlodipine
labs in am
d/w pt, daughter on phone
d/w primary
-
-
Date of Service: March 23, 2024
CC / HPI / ROS
-
Chief Complaint:
Hyponatremia
History of Present Illness:
sodium better 128 s/p 3% saline 5/2
BP are improving
no fever
Review of Systems:
no cp or sob
no MEIER or dizzy
Labs
-
Labs:
WBC 7.8 10^3/uL (4.8-10.8) 03/23/24 04:59
RBC 4.05 10^6/uL (4.20-5.40) L 03/23/24 04:59
Hgb 11.3 g/dL (12.0-16.0) L 03/23/24 04:59
Hct 31.7 % (37.0-47.0) L 03/23/24 04:59
Plt Count 222 10^3/uL (130-400) 03/23/24 04:59
eGFR > 60.00 03/23/24 04:59
Albumin 4.6 g/dl (3.5-5.0) 03/21/24 13:00
Physical Exam
-
Vital Signs:
Vital Signs
Temp Pulse Resp BP Pulse Ox
97.8 F 73 18 140/58 99
03/23/24 07:35 03/23/24 08:52 03/23/24 07:35 03/23/24 08:52 03/23/24 07:35
Cardiovascular:: Regular rate and rhythm
Respiratory:: Bilateral: CTA
Lung Excursion:: Normal
Abdomen:: Nontender and Soft
Extremity Edema:: None: Bilateral:
Butts Catheter: No
[2024-03-23 15:17] VITALS: BP 134/54
[2024-03-23 15:31] LABS: Blood Urea Nitrogen 21 mg/dl (7-17); Calcium 8.8 mg/dl (8.4-10.2); Carbon Dioxide 24 mmol/L (22-30); Chloride 95 mmol/L (98-107); Estimated Creatinine Clearance 46 ml/min; Glucose 168 mg/dl (70-99); Potassium 3.9 mmol/L (3.5-5.1); Sodium 126 mmol/L (135-145); eGFR > 60.00
[2024-03-23 16:48] LABS: Glucose - Point of Care 200 mg/dl (70-99)
[2024-03-23] MEDS: LOVENOX 40 MG SC (17:17)
[2024-03-23] MEDS: SAMSCA 15 MG PO (17:22)
[2024-03-23] MEDS: NOVOLOG FLEXPEN-LOW RESISTANCE 2 UNITS SC (17:29)
[2024-03-23] MEDS: NEURONTIN 200 MG PO (20:25)
[2024-03-23] MEDS: NORVASC 5 MG PO (20:25)
--- NOTE | 2024-03-23 20:54 | W.PN.UPDATE ---
Update Note
Progress Note Update
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 Patient seen and evaluated, reports she had normal BM earlier today, then had two episodes of loose brown, watery stool. reports mild lower abdomen discomfort other lennon denies any pain,
nausea, vomiting. States she had similar episode when she took magnesium 1 year ago and once she stopped Diarrhea stopped. Patient been on magnesium supplements at home, and on Magnesium tab daily here. Patient also is on Doxycycline for bronchitis
and been on it for few days. no sick contacts or recent travel, Denies any hx of stomach problems. +flatus, denies any blood in the stool. will draw labs AM or early if diarrhea continues.
[2024-03-23 21:22] LABS: Glucose - Point of Care 149 mg/dl (70-99)
[2024-03-23 23:35] VITALS: BP 133/60
[2024-03-24 06:00] VITALS: BMI 25.8
[2024-03-24 07:30] VITALS: BP 125/50
[2024-03-24 07:33] LABS: Glucose - Point of Care 144 mg/dl (70-99)
[2024-03-24] MEDS: NOVOLOG FLEXPEN-LOW RESISTANCE SC (07:35)
[2024-03-24 07:51] LABS: Blood Urea Nitrogen 30 mg/dl (7-17); Calcium 9.4 mg/dl (8.4-10.2); Carbon Dioxide 23 mmol/L (22-30); Chloride 99 mmol/L (98-107); Estimated Creatinine Clearance 52 ml/min; Glucose 115 mg/dl (70-99); Potassium 4.3 mmol/L (3.5-5.1); Sodium 132 mmol/L (135-145); eGFR > 60.00
[2024-03-24] MEDS: MAG-TAB SR 84 MG PO (08:44)
[2024-03-24] MEDS: PLAVIX 75 MG PO (08:44)
[2024-03-24] MEDS: TRANXENE 3.75 MG PO (08:44)
[2024-03-24] MEDS: VIBRAMYCIN 100 MG PO (08:44)
[2024-03-24] MEDS: COREG 12.5 MG PO (08:44)
[2024-03-24] MEDS: GLUCOPHAGE 1000 MG PO (08:44)
[2024-03-24] MEDS: LIPITOR 40 MG PO (08:44)
[2024-03-24] MEDS: LASIX 20 MG PO (08:45)
[2024-03-24] MEDS: COZAAR 100 MG PO (08:45)
[2024-03-24] MEDS: JANUVIA 100 MG PO (10:18)
[2024-03-24 11:48] LABS: Glucose - Point of Care 172 mg/dl (70-99)
[2024-03-24 12:08] VITALS: BP 132/56
--- NOTE | 2024-03-24 12:26 | W.PN.NEPH.PH ---
Today's Communication / Plan
-
ok to d/c
Assessment/Plan
-
Impression:
Symptomatic euvolemic hyponatremia (117)
History of hyponatremia
Hypertension
Diabetes
History of breast cancer
Dyslipidemia
Plan:
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
-Likely exacerbated by presence of URI and unregulated fluid intake+ recent use of HCTZ, U osmo 507, U na 137
-Fluid restriction 48 ounces daily
sodium corrected appropriately upto 132, s/p samsca 03/23
cont Lasix and fluid restriction at d/c
-TSH and cortisol are normal
BP are improving with addition of Amlodipine
ok to d/c with BMP this week
nephro f/u
-
-
Date of Service: March 24, 2024
CC / HPI / ROS
-
Chief Complaint:
Hyponatremia
History of Present Illness:
sodium better 132 s/p samsca 03/23
BP are improving
no fever
Review of Systems:
no cp or sob
no MEIER or dizzy
brief diarrhea overnight resolved
Labs
-
Labs:
WBC 7.8 10^3/uL (4.8-10.8) 03/23/24 04:59
RBC 4.05 10^6/uL (4.20-5.40) L 03/23/24 04:59
Hgb 11.3 g/dL (12.0-16.0) L 03/23/24 04:59
Hct 31.7 % (37.0-47.0) L 03/23/24 04:59
Plt Count 222 10^3/uL (130-400) 03/23/24 04:59
Sodium 132 mmol/L (135-145) L 03/24/24 05:42
Potassium 4.3 mmol/L (3.5-5.1) 03/24/24 05:42
Chloride 99 mmol/L (98-107) 03/24/24 05:42
Carbon Dioxide 23 mmol/L (22-30) 03/24/24 05:42
BUN 30 mg/dl (7-17) H 03/24/24 05:42
Creatinine 0.7 mg/dL (0.6-1.0) 03/24/24 05:42
eGFR > 60.00 03/24/24 05:42
Glucose 115 mg/dl (70-99) H 03/24/24 05:42
Calcium 9.4 mg/dl (8.4-10.2) 03/24/24 05:42
Albumin 4.6 g/dl (3.5-5.0) 03/21/24 13:00
Physical Exam
-
Vital Signs:
Vital Signs
Temp Pulse Resp BP Pulse Ox
98.6 F 60 18 132/56 97
03/24/24 12:08 03/24/24 12:08 03/24/24 12:08 03/24/24 12:08 03/24/24 12:08
Cardiovascular:: Regular rate and rhythm
Respiratory:: Bilateral: CTA
Lung Excursion:: Normal
Abdomen:: Nontender and Soft
Extremity Edema:: None: Bilateral:
Butts Catheter: No
--- NOTE | 2024-03-24 13:00 | W.PN.HOSP.TC ---
Today's Communication/Plan
-
d/c home
Assessment / Plan
Assessment / Plan
1. Acute hyponatremia - presumed hypovolemic
-Previous history of hyponatremia with another sodium of 126
-Patient been having generalized weakness/fatigue for last few days
-Sodium 117 in ER
-Urine sodium 137 Uosm 507
-TSH/random cortisol WNL
-No overt malignancy on lung parenchyma, right humeral head chronic changes
-s/p 3% hypertonic saline
-Got 15 mg Samsca yesterday, sodium 132 today.
-Follow-up BMP prescription provided
-Patient will follow 40 ounce fluid restriction post discharge
-Nephro discussed hyperlipidemia was started on hydrochlorothiazide 1 week back not on med list. Patient to be not take any further HCTZ
2. HTN urgency - resolved
Essential HTN
-Resume home medication of losartan/coreg
-norvasc started - BP improved
3. NIDDM
- maintain on ISS
- continue metformin, hold other meds.
4. Nausea/vomiting - resolved
-hyponatremia related likely
-diet as tolerated, prn zofran
5. Mild bronchitis
-patient was started on doxy before hospitalization,
-Likely viral. Continue symptomatic care
-Mild cough with it. No dyspnea/hypoxia
CAD
HLD
h/o COVID infection
DVTPPX - lovenox
Full code
Discussed with Nephrology/family
More than 30 minutes spent in discharge including
Final examination of the patient
Summarizing hospital stay
Instructions for continuing care to all relevant caregivers
Preparation of discharge records, prescriptions, and referral forms
Total time spent (in minutes): 38 mins
Anticipated Discharge: Today
Subjective/Interval History
-
Date of Service: March 24, 2024
No issues overnight
Objective Data
-
Labs:
Laboratory Results
03/24/24
05:42
Sodium 132 L
Potassium 4.3
Chloride 99
Carbon Dioxide 23
BUN 30 H
Creatinine 0.7
Glucose 115 H
Calcium 9.4
Vital Signs:
Vital Signs
Temp Pulse Resp BP Pulse Ox
98.6 F 60 18 132/56 97
03/24/24 12:08 03/24/24 12:08 03/24/24 12:08 03/24/24 12:08 03/24/24 12:08
I&O
03/23/24 03/24/24 03/25/24
06:59 06:59 06:59
Intake Total 1020 / 1020 960 / 960
Output Total 800 / 800 750 / 750
Balance 220 / 220 210 / 210
Review of Systems
-
Respiratory: Reports No Symptoms
Cardiac: Reports No Symptoms
Abdomen/GI: Reports No Symptoms
Physical Exam
-
General: No Apparent Distress
HEENT: Negative Oxygen
Neuro: Awake, Alert and Oriented
Psych: Calm
--- NOTE | 2024-03-24 14:34 | W.DCSUMMARY ---
Discharge Summary
Discharge Data
Date of Admission: 03/21/24
Date of Discharge: 03/24/24
-
Pending Results: No
Hospital Course
Discharging Physician : Dr Antony Grubbs
Disposition : Home
Primary care physician : Dr Migdalia Velazquez
Principal Discharge diagnosis :
Acute on chronic hyponatremia
Hypertensive urgency
Episode of nausea and vomiting
Chronic Discharge diagnosis :
Vft-nkoupme-ahzltbkdi diabetes mellitus
Coronary artery disease
Hyperlipidemia
History of COVID infection
Hospital Course :
Patient is 78-year-old female with above-mentioned past medical history came to ER with new onset of generalized weakness and fatigue starting for 5 to 7 days. Patient had 1 episode of nausea and vomiting and poor appetite. In ER laboratory
evaluation showing patient having new acute hyponatremia with blood sodium down to 117. Patient already on Lasix from previous hyponatremia episode 2 years back and urine electrolytes not helpful. TSH/random cortisol were within normal limit.
Nephro was involved in care and patient was started on 3% NS. Follow-up sodium next day was 125. On further history gathering from patient, patient stated of being started on hydrochlorothiazide and have taken 2-3 doses. This may explain
hyponatremia this visit. Patient instructed not to resume hydrochlorothiazide back. Patient required a follow-up dose of Samsca with which discharge sodium was tested to be 132. Patient instructed to follow-up 40 ounce fluid restriction at home.
Patient was provided a follow-up prescription for repeat blood work in 1 week and follow-up with nephrology in office.
Patient also have uncontrolled blood pressure, Norvasc was added to regimen in view of hydrochlorothiazide. Further addition of nondiabetic blood pressure medication will be required based on patient blood pressure trend.
Important imaging findings :
None
Procedure findings :
None
Discharge Plan
-
Patient Disposition: Home (Routine Discharge)
Discharge Diagnosis/Procedures: Acute hyponatremia, Uncontrolled Hypertension
Condition: Fair
Diet: Diabetic, Carb Controlled and Other diet
Additional Diets: Restrict fluid intake to 40 oz/day
Activity: As tolerated
Driving Restrictions: As prior to admission
Bathing Restrictions: OK to Shower
Blood Work: BMP in 1 week
Referrals:
Migdalia Bush MD [Family Provider] - in one week
Jaleesa Lau MD [Active] -
Additional Discharge Medication Instructions: Hydrochlorothiazide and Doxycycline
Prescriptions:
New
amlodipine 5 mg Tablet
5 mg PO HS Qty: 30 2RF
benzonatate 200 mg capsule
200 mg PO TID PRN (Reason: Cough) Qty: 15 0RF
Continued
clorazepate dipotassium 3.75 MG tablet
3.75 mg PO BID
clopidogrel 75 MG tablet
75 mg PO DAILY
atorvastatin 40 mg Tablet
40 mg PO QPM
betamethasone dipropionate 0.05 % Cream
1 applic TOPICAL DAILYPRN PRN (Reason: vaginal)
cyanocobalamin (vitamin B-12) 1,000 mcg Capsule
1,000 mcg PO DAILY
metformin 1,000 MG tablet
1,000 mg PO BID Qty: 0 0RF
PreserVision AREDS 2,148 mcg-113 mg-45 mg-17.4mg Tablet
1 tab PO DAILY
magnesium oxide 400 mg magnesium Tablet
400 mg PO DAILY
carvedilol [Coreg] 12.5 mg Tablet
12.5 mg PO BID
gabapentin 100 mg Capsule
200 mg PO HS
losartan 100 mg Tablet
100 mg PO DAILY
Januvia 100 mg Tablet
100 mg PO DAILY
Vabysmo 6 mg/0.05 mL Solution
6 mg INTRAVITREAL MONTHLY
Discontinued
doxycycline monohydrate 100 mg Capsule
100 mg PO BID
Discharge Orders:
Discharge Patient (As Directed); Ordered 03/24/24
Ordered By: Antony Grubbs
Discharge Date and Time
Discharge Date/Time: 03/24/24 12:50
Print Language: GERMAN
--- NOTE | 2024-03-24 16:54 | CM ---
Patient with Dx Acute hyponatremia, HTN urgency. Room air.
Met with patient who was preparing for discharge.
The patient says she feels ready for discharge home today. IMM completed. Her son in law will provide transport home today.
No CM d/c needs identified.
Plan home today.
== END 2024-03-24 12:50 | disposition home or self-care (01) | DRG 645 ==
LOC: 4 EAST ACU 14:50
PROVIDERS: Emergency Medicine; Internal Medicine; Nurse Practitioner Gerontology; Registered Nurse; ADMITTING PHYSICIAN Hospitalist; EMERGENCY PHYSICIAN Emergency Medicine; FAMILY PHYSICIAN Family Medicine; OTHER PHYSICIAN Specialist
DX: E22.2 Syndrome of inappropriate secretion of antidiuretic hormone (principal); I16.0 Hypertensive urgency; E11.319 Type 2 diabetes mellitus with unspecified diabetic retinopathy without macular edema; E11.40 Type 2 diabetes mellitus with diabetic neuropathy, unspecified; I10 Essential (primary) hypertension; E78.00 Pure hypercholesterolemia, unspecified; G47.33 Obstructive sleep apnea (adult) (pediatric); I25.10 Atherosclerotic heart disease of native coronary artery without angina pectoris; Z79.84 Long term (current) use of oral hypoglycemic drugs; Z85.3 Personal history of malignant neoplasm of breast; Z86.73 Personal history of transient ischemic attack (TIA), and cerebral infarction without residual deficits; Z86.16 Personal history of COVID-19
CPT/HCPCS: 71046; 80048; 80053; 81003; 81015; 82533; 82962; 83605; 83735; 83935; 84295; 84300; 84443; 84484; 85027; 87040; 87502; 87811; 93005; 96361; 96372; 96374; 99285

== ENCOUNTER → 2024-04-01 10:44 | Outpatient (REF) | payer MEDICARE, OTHER, SELFPAY ==
[2024-04-01 12:43] LABS: Blood Urea Nitrogen 24 mg/dl (7-17); Calcium 10.5 mg/dl (8.4-10.2); Carbon Dioxide 27 mmol/L (22-30); Chloride 98 mmol/L (98-107); Glucose 91 mg/dl (70-99); Potassium 4.3 mmol/L (3.5-5.1); Sodium 137 mmol/L (135-145); eGFR > 60.00
== END ==
LOC: REG 10:44
PROVIDERS: ATTENDING PHYSICIAN Hospitalist; FAMILY PHYSICIAN Family Medicine; REFERRING PHYSICIAN Internal Medicine
DX: E87.1 Hypo-osmolality and hyponatremia (principal)
CPT/HCPCS: 36415; 80048

== ENCOUNTER → 2024-05-21 13:50 | Outpatient (REF) | payer MEDICARE, OTHER, SELFPAY ==
[2024-05-21 14:57] LABS: Albumin 3.9 g/dl (3.5-5.0); Blood Urea Nitrogen 17 mg/dl (7-17); Calcium 9.8 mg/dl (8.4-10.2); Carbon Dioxide 29 mmol/L (22-30); Chloride 103 mmol/L (98-107); Glucose 141 mg/dl (70-99); Phosphorus 4.2 mg/dl (2.5-4.5); Potassium 4.6 mmol/L (3.5-5.1); Sodium 136 mmol/L (135-145); eGFR > 60.00
== END ==
LOC: REG 13:50
PROVIDERS: ATTENDING PHYSICIAN Internal Medicine; FAMILY PHYSICIAN Family Medicine; REFERRING PHYSICIAN Internal Medicine Endocrinology, Diabetes & Metabolism
DX: I10 Essential (primary) hypertension (principal); E87.1 Hypo-osmolality and hyponatremia; E83.42 Hypomagnesemia; R80.9 Proteinuria, unspecified
CPT/HCPCS: 36415; 80069

== ENCOUNTER → 2024-06-11 09:22 | Outpatient (REF) | payer MEDICARE, OTHER, SELFPAY ==
[2024-06-11 10:42] LABS: Urine Protein 13 mg/dl (0-12)
[2024-06-11 10:48] LABS: Albumin 4.1 g/dl (3.5-5.0); Blood Urea Nitrogen 19 mg/dl (7-17); Calcium 9.9 mg/dl (8.4-10.2); Carbon Dioxide 29 mmol/L (22-30); Chloride 102 mmol/L (98-107); Glucose 117 mg/dl (70-99); Magnesium 1.1 mg/dl (1.6-2.3); Phosphorus 3.7 mg/dl (2.5-4.5); Potassium 4.2 mmol/L (3.5-5.1); Sodium 139 mmol/L (135-145); eGFR > 60.00
[2024-06-14 02:23] LABS: Albumin 3.89 g/dL (3.75-5.01); Alpha 1 Globulin 0.29 g/dL (0.19-0.46); Alpha 2 Globulin 0.75 g/dL (0.48-1.05); Free Kappa Light Chains,Quant 17.34 mg/L (3.30-19.40); Free Lambda Light Chains,Quant 23.15 mg/L (5.71-26.30); IgA 152 mg/dL (68-408); IgG 743 mg/dL (768-1632); IgM 55 mg/dL (35-263); Immunofixation Electrophoresis IFE Done; Kappa/Lambda Fr Light Ratio 0.75 (0.26-1.65); Total Protein-Electrophoresis 6.4 g/dL (6.3-8.2)
== END ==
LOC: REG 09:22
PROVIDERS: ATTENDING PHYSICIAN Internal Medicine; FAMILY PHYSICIAN Family Medicine; REFERRING PHYSICIAN Internal Medicine Endocrinology, Diabetes & Metabolism
DX: R80.9 Proteinuria, unspecified (principal); E83.42 Hypomagnesemia; E87.1 Hypo-osmolality and hyponatremia
CPT/HCPCS: 36415; 80069; 82570; 82784; 83521; 83735; 84155; 84156; 84165; 86334

== ENCOUNTER → 2024-07-02 09:29 | Outpatient (REF) | payer MEDICARE, OTHER, SELFPAY ==
[2024-07-02 11:38] LABS: Magnesium 1.5 mg/dl (1.6-2.3)
== END ==
LOC: REG 09:29
PROVIDERS: ATTENDING PHYSICIAN Internal Medicine; FAMILY PHYSICIAN Family Medicine
DX: I10 Essential (primary) hypertension (principal); E87.1 Hypo-osmolality and hyponatremia; R80.9 Proteinuria, unspecified; E83.42 Hypomagnesemia
CPT/HCPCS: 36415; 83735

== ENCOUNTER → 2024-07-03 08:48 | Outpatient (REF) | payer MEDICARE, OTHER, SELFPAY | LOC: DHVS 08:48 | PROVIDERS: ATTENDING PHYSICIAN Surgery Vascular Surgery; FAMILY PHYSICIAN Family Medicine; REFERRING PHYSICIAN Internal Medicine Cardiovascular Disease | DX: I73.9 Peripheral vascular disease, unspecified (principal); I77.9 Disorder of arteries and arterioles, unspecified; I25.10 Atherosclerotic heart disease of native coronary artery without angina pectoris | CPT/HCPCS: 93880; 93922; 93925 ==

== ENCOUNTER → 2024-07-04 10:10 | Outpatient (REF) | payer MEDICARE, OTHER, SELFPAY ==
[2024-07-04 14:23] LABS: 24 Hour Urine Creatinine 0.262 gm/day (0.8-1.8); 24 Hour Urine Total Volume 245 ml
== END ==
LOC: REG 10:10
PROVIDERS: ATTENDING PHYSICIAN Internal Medicine; FAMILY PHYSICIAN Family Medicine
DX: I10 Essential (primary) hypertension (principal); E87.1 Hypo-osmolality and hyponatremia; R80.9 Proteinuria, unspecified; E83.42 Hypomagnesemia
CPT/HCPCS: 36415; 81050; 82570

== ENCOUNTER → 2024-07-30 09:17 | Outpatient (REF) | payer MEDICARE, OTHER, SELFPAY ==
[2024-07-30 10:53] LABS: Blood Urea Nitrogen 19 mg/dl (7-17); Carbon Dioxide 28 mmol/L (22-30); Chloride 103 mmol/L (98-107); Glucose 138 mg/dl (70-99); Magnesium 1.4 mg/dl (1.6-2.3); Phosphorus 3.4 mg/dl (2.5-4.5); Potassium 4.4 mmol/L (3.5-5.1); Sodium 140 mmol/L (135-145); eGFR > 60.00
== END ==
LOC: REG 09:17
PROVIDERS: ATTENDING PHYSICIAN Internal Medicine; FAMILY PHYSICIAN Family Medicine
DX: I10 Essential (primary) hypertension (principal); E87.1 Hypo-osmolality and hyponatremia; R80.9 Proteinuria, unspecified; E83.42 Hypomagnesemia; E11.9 Type 2 diabetes mellitus without complications
CPT/HCPCS: 36415; 80069; 83735

== ENCOUNTER 2024-11-01 13:38 | Emergency (ER) | payer MEDICARE, OTHER, SELFPAY ==
[2024-11-01 13:39] VITALS: BP 136/104
--- NOTE | 2024-11-01 13:44 | ED.GENMED ---
ED Provider Triage
-
Patient seen by provider in Triage?: Seen in Triage
Attestation: A medical screening examination has been initiated by a qualified medical provider. Based on the assessment performed at this time, it has been determined that an emergent medical condition may exist and the patient has been informed
that further medical evaluation and possible additional diagnostic testing may be needed.
HPI: 79yoF here with a dry cough x 1 week. Also c/o fatigue, generalized weakness, decreased appetite. Slightly SOB. No fevers.
GENERAL: Alert , in no apparent distress
EYE: No visual abnormalities.
NECK: Trachea midline
ENT: No visible abnormalities.
LUNGS: No acute respiratory distress
NEUROLOGICAL: Alert and oriented
SKIN: Skin intact. No visible changes.
MUSCULOSKELETAL: Moving extremities normally
PSYCH: Normal and appropriate interaction.
This is a medical evaluation conducted in person to initiate diagnostic evaluation and provide initial therapeutics. Please see further documentation by the treating clinician.
Cardiac labs, EKG, COVID/flu swab, and CXR ordered.
History of Present Illness
General
Chief Complaint: Weakness
Source: patient
Exam Limitations: none
Time Seen by Provider: 11/01/24 15:13
History of Present Illness
History of Present Illness:
79yoF with a history of hypertension, hyperlipidemia, and type 2 diabetes presenting for evaluation of a cough. Patient has been feeling generally weak and fatigued for the past week or so. She developed a cough yesterday which is mostly dry. She
feels that she has phlegm in her chest but she is unable to cough it up. She also reports decreased appetite and decreased p.o. intake. She reports slight dyspnea. No chest pain, leg swelling, or fevers. No known sick contacts.
Past History
Past History
ED Past Medical History: CVA (? in 07/2014), HTN, Hypercholesterolemia, NIDDM, Other (obesity) and Other (TOMEKA)
Social History
Tobacco: Non-smoker
Alcohol: None
Drug: None
Personal:
Living: with family
Employment: Retired
Family History
Family History: Other (reviewed and non-contributory)
Phy Exam
General Physical Exam
General Presentation: well appearing and no apparent distress
General age: appears stated age
General Skin: warm and dry
General Habitus: normal
General Mental: alert
ENT Exam
ENT Exam: normocephalic
Cardiovascular Exam
Cardiovascular Exam: regular rate/rhythm, no edema and no murmur
Pulmonary Exam
Pulmonary Exam: lungs clear, no respiratory distress, no rales, no crackles, no rhonchi and other (Frequent dry cough. Lungs CTA. Speaking in full sentences without difficulty. )
Neurological Exam
Neurological Exam: alert
Chadd Coma Scale
Eye Opening: Spontaneous
Verbal Response: Oriented
Motor Response: Obeys Commands
GCS Total Score: 15
Skin Exam
Skin Exam: normal color and warm/dry
Psychiatric Exam
Psychiatric Exam: normal mood/affect
Course
Orders/Labs/Results
Orders:
Orders
11/01/24 13:46
Electrocardiogram (*1) Urgent
Reason for Study: Shortness of Breath
EKG- Treatment ONCE
CR Chest - 2 Views Urgent
Comment:
Reason For Exam: SOB, cough
11/01/24 13:50
COVID-19 Antigen Urgent
Source: Nasal Swab
Complete Blood Count/With Diff Urgent
Comprehensive Metabolic Panel Urgent
Troponin I Urgent
Influenza A+B Rapid Molecular Urgent
ARACELI Source: Nasal Swab
Specimen Description:
Abnormal Lab Results
11/01/24
13:50
RBC 3.80 L 10^6/uL
(4.20-5.40)
Hgb 10.7 L g/dL
(12.0-16.0)
Hct 32.0 L %
(37.0-47.0)
Absolute Lymphs (auto) 0.4 L 10^3/uL
(1.2-3.4)
Absolute Monos (auto) 0.8 H 10^3/uL
(0.1-0.6)
Neutrophils % 81.9 H %
(42.2-75.2)
Lymphocytes % 5.6 L %
(20.5-51.1)
Monocytes % 10.8 H %
(1.7-9.3)
Carbon Dioxide 21 L mmol/L
(22-30)
BUN 18 H mg/dl
(7-17)
Glucose 147 H mg/dl
(70-99)
Total Protein 6.2 L g/dl
(6.3-8.2)
SARS-CoV-2 Antigen Positive A
(Negative)
11/01/24 13:50
11/01/24 13:50
Vital Signs
Initial and Last Documented VS:
Initial Vital Signs
Temp Pulse Resp BP Pulse Ox
98.1 F 68 20 136/104 98
11/01/24 13:39 11/01/24 13:39 11/01/24 13:39 11/01/24 13:39 11/01/24 13:39
Last Documented Vital Signs
Temp Pulse Resp BP Pulse Ox
98.1 F 87 18 165/56 96
11/01/24 13:39 11/01/24 16:05 11/01/24 16:05 11/01/24 16:05 11/01/24 16:05
MDM/Problems Addressed
Differential Diagnosis Includes:
79yoF here with fatigue x 1 week and cough x 1 day. Also having decreased appetite. She is afebrile and hemodynamically stable. Oxygen saturation 98% on room air. She is well-appearing no acute distress. Frequent dry cough noted on exam. Lungs
clear to auscultation. Differential diagnosis includes but is not limited to: Viral illness, COVID, influenza, bronchitis, pneumonia
COVID testing sent in triage which is positive. EKG shows LBBB which was also present on prior EKG. Troponin WNL. Remainder of labs unremarkable. No infiltrates on CXR. Repeat vital signs stable. No indication for hospitalization at this time.
Supportive care and quarantine discussed. Advised close follow-up with PCP and strict ED return precautions discussed. She expressed understanding and is agreement with plan. She was discharged in stable condition.
*EKG
Interpreted by ED Provider?: Yes
EKG Intrepretation Date: 11/01/24
Heart Rate: 64
Rate: normal
Rhythm: sinus and sinus arrhythmia
[place]: left axis deviation
QRS Pattern: left bundle branch block
Ischemia: no ischemia
*Critical Care Note
Total Time (30-74mins, 75-104mins- exclusive of procedures): Not Applicable
ED Attending Note
-
Portions of this chart may have been created with voice recognition software.� Occasional wrong word or��sound alike� substitutions may have occurred due to the inherent limitations of voice recognition software.
Discharge Plan
Departure
Patient Disposition: Home (Routine Discharge)
Date of Disposition: 11/01/24
Time of Disposition: 15:39
Patient with high blood pressure during this ER visit?: No
Discharge Problem:
COVID-19
Prescriptions:
No Action
clorazepate dipotassium 3.75 MG tablet
3.75 mg PO BID
clopidogrel 75 MG tablet
75 mg PO DAILY
atorvastatin 40 mg Tablet
40 mg PO QPM
betamethasone dipropionate 0.05 % Cream
1 applic TOPICAL DAILYPRN PRN (Reason: vaginal)
cyanocobalamin (vitamin B-12) 1,000 mcg Capsule
1,000 mcg PO DAILY
metformin 1,000 MG tablet
1,000 mg PO BID Qty: 0 0RF
PreserVision AREDS 2,148 mcg-113 mg-45 mg-17.4mg Tablet
1 tab PO DAILY
magnesium oxide 400 mg magnesium Tablet
400 mg PO DAILY
carvedilol [Coreg] 12.5 mg Tablet
12.5 mg PO BID
gabapentin 100 mg Capsule
200 mg PO HS
losartan 100 mg Tablet
100 mg PO DAILY
Januvia 100 mg Tablet
100 mg PO DAILY
Vabysmo 6 mg/0.05 mL Solution
6 mg INTRAVITREAL MONTHLY
amlodipine 5 mg Tablet
5 mg PO HS Qty: 30 2RF
benzonatate 200 mg capsule
200 mg PO TID PRN (Reason: Cough) Qty: 15 0RF
Activity Restrictions/Additional Instructions:
Drink plenty of fluids and rest. Use Mucinex and Flonase nasal spray for congestion. Use honey and humidifier for cough.
Remain in quarantine for 5 days and wear a mask for 10 days.
Please follow-up with your family doctor on Monday. Return to the ER with any worsening symptoms or trouble breathing.
Interventions
Interventions:
*Risk Screen - Suicide Last Done: 11/01/24 16:05
*General Assessment Last Done: 11/01/24 13:39
*Neglect/Abuse Screening Last Done: 11/01/24 15:55
*ED COVID-19 Vaccine History Last Done: 11/01/24 15:55
*Nursing Disposition Last Done: 11/01/24 16:05
Discharge Date and Time
Discharge Date/Time: 11/01/24 16:12
Print Language: BULGARIAN
[2024-11-01 14:00] LABS: % Basophils 0.4 % (0-2); % Eosinophils 0.9 % (0-6); % Immature Granulocytes 0.4 % (0-0.5); % Lymphocytes 5.6 % (20.5-51.1); % Monocytes 10.8 % (1.7-9.3); % Neutrophils 81.9 % (42.2-75.2); Absolute Eosinophils 0.1 10^3/uL (0-0.7); Absolute Lymphocytes 0.4 10^3/uL (1.2-3.4); Absolute Monocytes 0.8 10^3/uL (0.1-0.6); Absolute Neutrophils 6.4 10^3/uL (1.4-6.5); Hemoglobin 10.7 g/dL (12.0-16.0); Mean Corp Hgb Conc. 33.4 g/dL (33.0-37.0); Mean Corpuscular Hgb 28.2 pg (27.0-31.0); Mean Corpuscular Volume 84.2 fL (81.0-99.0); Mean Platelet Volume 9.7 fL (7.4-10.4); Nucleated Red Blood Cells % 0 %; Platelet Count 174 10^3/uL (130-400); Red Cell Dist. Width 14.4 % (11.5-14.5); White Blood Cell Count 7.8 10^3/uL (4.8-10.8)
[2024-11-01 14:13] LABS: ALT (SGPT) 17 U/L (0-35); AST (SGOT) 20 U/L (14-36); Albumin 3.9 g/dl (3.5-5.0); Alkaline Phosphatase 77 U/L (38-126); Blood Urea Nitrogen 18 mg/dl (7-17); Calcium 8.9 mg/dl (8.4-10.2); Carbon Dioxide 21 mmol/L (22-30); Chloride 103 mmol/L (98-107); Glucose 147 mg/dl (70-99); Potassium 3.9 mmol/L (3.5-5.1); Sodium 135 mmol/L (135-145); Total Bilirubin 0.8 mg/dl (0.2-1.3); Total Protein 6.2 g/dl (6.3-8.2); eGFR > 60.00
[2024-11-01 14:14] LABS: COVID-19 Antigen Positive (Negative)
[2024-11-01 14:24] LABS: Troponin I < 0.012 ng/ml
[2024-11-01 16:05] VITALS: BP 165/56
== END 2024-11-01 16:12 | disposition home or self-care (01) ==
LOC: EMR 13:38
PROVIDERS: Physician Assistant; EMERGENCY PHYSICIAN Emergency Medicine; FAMILY PHYSICIAN Family Medicine
DX: U07.1 COVID-19 (principal); Z11.52 Encounter for screening for COVID-19; I10 Essential (primary) hypertension; E78.00 Pure hypercholesterolemia, unspecified; E11.9 Type 2 diabetes mellitus without complications
CPT/HCPCS: 99285; 71046; 80053; 84484; 85025; 87502; 87811; 93005

== ENCOUNTER → 2025-01-15 07:34 | Outpatient (REF) | payer MEDICARE, OTHER, SELFPAY | LOC: RAD 07:34 | PROVIDERS: ATTENDING PHYSICIAN Registered Nurse; FAMILY PHYSICIAN Family Medicine; REFERRING PHYSICIAN Surgery Vascular Surgery | DX: I73.9 Peripheral vascular disease, unspecified (principal) | CPT/HCPCS: 93922; 93925 ==

== ENCOUNTER → 2025-07-07 08:16 | Outpatient (REF) | payer MEDICARE, OTHER, SELFPAY | LOC: RAD 08:16 | PROVIDERS: ATTENDING PHYSICIAN Registered Nurse; FAMILY PHYSICIAN Family Medicine; REFERRING PHYSICIAN Surgery Vascular Surgery | DX: I73.9 Peripheral vascular disease, unspecified (principal); I65.22 Occlusion and stenosis of left carotid artery | CPT/HCPCS: 93880; 93922; 93925 ==

== ENCOUNTER 2025-08-19 05:56 | Day surgery (SDC) | payer MEDICARE, OTHER, SELFPAY ==
[2025-08-11 09:14] VITALS: BMI 26.4
[2025-08-19] VITALS (15 sets, daily range): BP systolic 133–197; BP diastolic 49–89; BMI 26.3
[2025-08-19 07:13] LABS: Glucose - Point of Care 135 mg/dl (70-99)
[2025-08-19] MEDS: NSS 500 IV (07:19)
--- NOTE | 2025-08-19 07:54 | W.SUR.PREOP ---
Pre-Operative Surgical Note
-
I have examined this patient prior to the performance of the scheduled procedure.
The patient's condition is unchanged from the time of the current History and
Physical and the patient is able to undergo the scheduled procedure.
[2025-08-19 09:11] LABS: Glucose - Point of Care 131 mg/dl (70-99)
--- NOTE | 2025-08-19 09:33 | OR.RPT ---
Operative Report
Operative Report
Date of Operation: 08/19/2025
Pre Op Diagnosis:
1. Disabling bilateral lower extremity claudication
2. Diabetes with lower extremity artery disease
Post Op Diagnosis:
1. Disabling bilateral lower extremity claudication
2. Diabetes with lower extremity artery disease
Procedure:
1. Intravascular lithotripsy to left superficial femoral artery (6 mm x 80 mm Shockwave E8)
2. Balloon angioplasty and drug-eluting stent placement to left superficial femoral artery (6 mm x 140 mm Zilver PTX)
3. Diagnostic aortobiiliac arteriogram
4. Diagnostic BILATERAL lower extremity arteriograms
5. Ultrasound-guided percutaneous access to the right common femoral artery
Surgeon: Scott Butts III, MD
Maintenance Machine Repairer: Sergio Shen MD PGY2
Anesthesia: Sedation with local
Fluoroscopy:
24.3 min
107 mGy
36.53 gy.cm2
Complications: None
Estimated Blood Loss: Less than 20 cc
History and Indications for Procedure: 79-year-old female with disabling lower extremity claudication.
Procedure in Detail: Flory Corrales was correctly identified and placed supine on the operating table. After adequate induction of anesthesia the bilateral groins were prepped and draped in the usual sterile fashion. A timeout was performed with the
nursing and anesthesia staff confirming the patient's identity as well as the nature and laterality of the procedure.
The right common femoral artery was identified under ultrasound guidance. The artery was patent. The superior and inferior aspects of the femoral head were identified with radiographic guidance and marked at the skin level. The proposed puncture
site was infiltrated with local anesthesia. Under ultrasound guidance we accessed the right common femoral artery with a micropuncture needle and upsized to a 5 Fr sheath over a Bentson wire. The wire and a ShepherProtean Payment hook flush catheter were
advanced into the distal abdominal aorta and a diagnostic aorto-biiliac arteriogram was performed:
AORTO-ILIAC ARTERIOGRAM:
Aorta: Focal peripheral wall calcification with no significant stenosis identified.
Right common iliac artery: Patent with no significant stenosis identified
Right external iliac artery: Patent with no significant stenosis identified
Left common iliac artery: Patent with no significant stenosis identified
Left external iliac artery: Patent with no significant stenosis identified
Under roadmap guidance using a Glidewire and the cafegive hook catheter we selected the left common iliac artery followed by the external iliac artery and then the common femoral artery. A catheter was tracked up and over the aortic bifurcation and
placed in the common femoral artery. A diagnostic left lower extremity arteriogram was then performed which demonstrated the following:
LEFT LOWER EXTREMITY:
Common femoral artery: Patent with no significant stenosis identified
Profunda femoral artery: Patent with no significant stenosis identified
Superficial femoral artery: Patent. Diffuse calcification identified. Focal high-grade stenosis identified in the distal superficial femoral artery
Popliteal artery: Patent with no significant stenosis identified
Anterior tibial artery: Patent proximally but occluded thereafter. Diseased dorsalis pedis artery reconstitutes in the foot
Tibioperoneal trunk: Patent. Stenosis identified.
Peroneal artery: Patent. Lone tibial artery runoff vessel.
Posterior tibial artery: Occluded with no distal reconstitution. Reconstitution of a plantar branch in the foot is identified from peroneal artery branches
ENDOVASCULAR INTERVENTION: Systemic heparin was administered. Exchanged out for a 6 Fr 45 cm sheath over a Storq wire. Selected the superficial femoral artery under roadmap guidance. The stenosis was crossed with a Quickcross and Glidewire. The wire
and catheter were advanced into the popliteal artery and subtraction angio confirmed proper position in the true lumen. Exchanged out for a 0.[address] wire.
Due to the heavily calcified nature of the superficial femoral artery disease and in an effort to modify the calcium to achieve maximum luminal gain with endovascular intervention I elected to proceed with intravascular lithotripsy. A 6 mm x 80 mm
E8 shockwave balloon was placed across the stenosis under roadmap guidance. Alternating rounds of lithotripsy pulse delivery at sub-nominal pressure and angioplasty at nominal pressure was performed across the stenosis. In between rounds of pulse
delivery and angioplasty the balloon was deflated and repositioned under roadmap guidance. All 400 pulses were delivered.
Subsequent arteriogram demonstrated significant luminal gain however dissection flaps were identified throughout the treated segment. I stented this segment of superficial femoral artery using a 6 mm x 140 mm Zilver PTX stent. The stent was
positioned in the desired location under roadmap guidance and deployed successfully. The stent was profiled with a 5 mm angioplasty balloon.
COMPLETION ARTERIOGRAM: Excellent technical result. Widely patent superficial femoral artery stent with brisk flow and no residual stenosis identified. Intact runoff through the popliteal artery and peroneal artery distally.
Satisfied with this result we concluded the procedure. The sheath tip was pulled back into the left external iliac artery. A runoff arteriogram of the right lower extremity was performed which demonstrated the following:
RIGHT LOWER EXTREMITY:
Common femoral artery: Patent with no significant stenosis identified
Profunda femoral artery: Patent with no significant stenosis identified
Superficial femoral artery: Patent. Diffuse calcification identified. Moderate stenoses identified in the mid to distal artery
Popliteal artery: Patent with no significant stenosis identified
Anterior tibial artery: Occluded
Tibioperoneal trunk: Patent
Peroneal artery: Patent. Lone tibial artery runoff vessel
Posterior tibial artery: Occluded
The sheath was secured in place with the plan to pull it in the recovery area. Protamine was administered. The patient tolerated the procedure well and was taken to the recovery area in stable condition.
Attestation: I was present and responsible for the entire procedure.
Signed:
Scott Butts III, MD
Vascular Surgery
[facility]
[2025-08-19] MEDS: NSS 1000 IV (10:30)
[2025-08-19] MEDS: LOW STRENGTH ASPIRIN 81 MG PO (10:30)
[2025-08-19 11:36] LABS: Glucose - Point of Care 132 mg/dl (70-99)
== END 2025-08-19 14:28 | disposition home or self-care (01) ==
LOC: CATH 05:56
PROVIDERS: ATTENDING PHYSICIAN Surgery Vascular Surgery; OTHER PHYSICIAN Internal Medicine Cardiovascular Disease; PRIMARYCARE PHYSICIAN Family Medicine
DX: E11.51 Type 2 diabetes mellitus with diabetic peripheral angiopathy without gangrene (principal); I70.213 Atherosclerosis of native arteries of extremities with intermittent claudication, bilateral legs; I10 Essential (primary) hypertension; E78.00 Pure hypercholesterolemia, unspecified; Z79.02 Long term (current) use of antithrombotics/antiplatelets; Z79.84 Long term (current) use of oral hypoglycemic drugs; Z79.899 Other long term (current) drug therapy; Z86.73 Personal history of transient ischemic attack (TIA), and cerebral infarction without residual deficits
CPT/HCPCS: C9765; 75625; 75716; 82962; C1725; C1753; C1761; C1769; C1874; C1894; Q9967

== ENCOUNTER → 2025-09-18 13:08 | Outpatient (REF) | payer MEDICARE, OTHER, SELFPAY | LOC: DHVS 13:08 | PROVIDERS: ATTENDING PHYSICIAN Surgery Vascular Surgery; FAMILY PHYSICIAN Family Medicine; OTHER PHYSICIAN Surgery Vascular Surgery | DX: I73.9 Peripheral vascular disease, unspecified (principal) | CPT/HCPCS: 93922; 93925 ==